=== PATIENT | female | born 1995 | race Caucasian/White ===

== ENCOUNTER 2024-01-17 22:17 | Outpatient (CLI) | payer SELFPAY ==
[~2024-01-17] VITALS: Ht 165.1 cm; Wt 68.6 kg
[2024-01-17 23:00] VITALS: BP 111/60; PULSE 81; TEMP 98
[2024-01-17] MEDS ORDERED: LR 1,000 ML IV PRN (23:00)
[2024-01-17 23:15] VITALS: BP 11/70; PULSE 77
[2024-01-17 23:30] VITALS: BP 120/71; PULSE 71
[2024-01-17 23:45] VITALS: BP 108/67; PULSE 71
[2024-01-17] MEDS ORDERED: diphenhydrAMINE 50 MG CAP PO ONE (23:45)
[2024-01-17] MEDS ORDERED: Acetaminophen 500 MG TAB PO ONE (23:45)
[2024-01-17] MEDS ORDERED: PRENATAL TABLET PO (23:54)
[2024-01-18] VITALS: BP 111/66; PULSE 66
[2024-01-19] MEDS ORDERED: MOTRIN 800800 MG/TAB PO (07:23)
== END 2024-01-18 00:22 | disposition home or self-care (01) ==
LOC: LDRO 22:17
DX: O26.893 Other specified pregnancy related conditions, third trimester (principal); E75.5 Other lipid storage disorders; Z3A.39 39 weeks gestation of pregnancy

== ENCOUNTER 2024-01-18 04:33 | Inpatient (IN) | payer SELFPAY ==
[2024-01-18] VITALS (72 sets, daily range): BP systolic 84–132; BP diastolic 49–84; PULSE 61–104; TEMP 97.6–99.5
[~2024-01-18] VITALS: Ht 152.4 cm; Wt 68.6 kg
[~2024-01-18 04:33] MED LIST: PRENATAL TABLET PO
--- NOTE | 2024-01-18 04:45 | NUR ---
G1 at 40 weeks arrives to unit with complaint of contractions every 5 minutes. Pt is ethiopian speaking. Video bridge gang worker used, ID number [id number] Criselda Pettit. Pt denies loss of fluid or red vaginal bleeding. Reports movement like normal. Pt denies any problems this . Clean gown on. Oriented to room, call light within reach, bed in low and locked position. US and toco explained and applied. Admission assessment started. Vitals obtained. SVE 3/100/bulging bag of water. Pt appears to be uncomfortable.
--- NOTE | 2024-01-18 05:10 | NUR ---
18G IV placed to left forearm. Admission labs obtained off IV start. Lactated Ringers infusion running to gravity.
[2024-01-18] MEDS ORDERED: diphenhydrAMINE 25 MG CAP PO PRN (05:15)
[2024-01-18] MEDS ORDERED: diphenhydrAMINE 50 MG/ML 1 ML VIAL IV PRN (05:15)
[2024-01-18] MEDS ORDERED: ePHEDrine 50 MG/10 ML VIAL IV PRN (05:15)
[2024-01-18] MEDS ORDERED: Naloxone 0.4 MG/ML VIAL IV PRN ×2 (05:15→22:15)
[2024-01-18] MEDS ORDERED: Ondansetron 4 MG/2 ML VIAL IV PRN (05:15)
[2024-01-18] MEDS ORDERED: LR 1,000 ML IV SCH (05:15)
[2024-01-18] MEDS ORDERED: ROPivacaine PF 0.2% 200 ML IV ONE (05:18)
--- NOTE | 2024-01-18 05:33 | NUR ---
0520 - Raina Caldwell CRNA on unit and notify that patient is ready for epidural. 0527 - Video Neon Technician used, ID number [id number] - Myesha. Viri at bedside. Pt positioned to sitting on edge of bed. Epidural procedure, risks, and benefits explained to patient, verbalized understanding. 0533 - Single shot by LONA Meredith. Pt denies any adverse reactions. 0538 - Pt positioned to wedge left with pillow support for comfort. Safety precautions reviewed, verbalized understanding. Call light within reach, bed in low and locked position. See anesthesia record.
--- NOTE | 2024-01-18 05:50 | NUR ---
BP 84/49, this RN remains at bedside with video recessing machine operator online. Pt denies feeling light headed, dizzy, or nauseous. BP cuff readjusted.
[2024-01-18 06:04] LABS: BASO # 0.1 K/mm3 (0.0-0.2); BASO % 0.4 % (0.0-2.0); EOS # 0.1 K/mm3 (0.0-0.7); EOS % 0.4 % (0.0-4.0); GRAN # 14.3 K/mm3 (1.4-6.5); GRAN % 77.9 % (42.2-75.2); HEMATOCRIT 42.5 % (37.0-47.0); HEMOGLOBIN 14.7 g/dl (12.5-16.0); LYMPH # 2.3 K/mm3 (1.2-3.4); LYMPH % 12.3 % (20.0-51.0); MEAN CELL VOLUME 90 fl (80.0-100.0); MEAN CORPUSCULAR HEMOGLOBIN 31 pg (27-31); MEAN CORPUSCULAR HGB CONC 35 g/dl (33.0-37.0); MEAN PLATELET VOLUME 10.7 fl (7.4-10.4); MONO # 1.4 K/mm3 (0.1-0.6); MONO % 7.6 % (1.7-9.3); PLATELET COUNT 338 K/mm3 (130-400); RED BLOOD COUNT 4.71 M/mm3 (4.10-5.30); REDCELL DISTRIBUTION WIDTH-CV 13.2 % (11.5-14.5)
--- NOTE | 2024-01-18 06:25 | NUR ---
0625[facility] report from Bee Melgar RN. Pt visibly uncomfortable with ctx. Automatic Lathe Setter "Mehrdad" #[id number] used for education/communication. Pt instructed on pt controlled epidural bolus button. Pt pushes button. BP noted to be 89/54. LR bolus. Ephedrine given. See mar. 0635Pt agreeable to SVE. SVE 4/100/-3. Consent forms explained and signed. RN reviews plan of care with pt and spouse who verbalize understanding. 0712Dr. Kellogg updated on pt. See physician notification. 0720Pt positioned supine for catheter placement. FHR decel to 65bmp and lasting 3min. LR bolus initiated. 0725Catheter placed. Pt left lateral with peanut ball in place. Pt instruced on how to use call light or contact nurse with any questions or needs. Questions invited. Pt denies questions or needs at this time. States comfortable with FLEX.
--- NOTE | 2024-01-18 09:55 | NUR ---
0955Dr. Kellogg on unit and updated on pt. See physician notification. 1000RN reviews plan of care and pitocin with pt who is agreeable to pitocin augmentation. Pitocin started at 2mu per orders. Roller Shop Supervisor "Lilian" #[id number] untilized. 1010Dr. Kellogg at bedside and reviews plan of care with pt and spouse who verbalize understanding. "Lilian" #[id number] utilized for all interpretation. Bedside US by Dr. Kellogg; cephalic presentation. AROM by Dr. Sanz for moderate amount of meconium stained fluid. SVE 4/100/-2. Daysi care provided, pads changed, and pt repositioned. Questions invited and answered. Pt denies any further needs at this time. Call light within reach.
[2024-01-18] MEDS ORDERED: LR & Oxytocin 500 ML IV SCH (10:15)
--- NOTE | 2024-01-18 10:50 | NUR ---
1050Patient grimacing with ctx and gestures to pt controlled epidural bolus button. "Dewey" #[id number] utilized for interpretation. Pt reports increased sharp pain. States there is no pressure at this time. Epidural bolus button pushed by pt. Reviewed pressure vs sharp pain. Instructed to call RN if she feels she needs to push epidural button again. Reviewed pushing with ctx and how pressure can help with pushing efforts, but also wanting to maintain pt comfort with FLEX. Pt verbalizes understanding. Call light within reach.
--- NOTE | 2024-01-18 12:00 | NUR ---
1200 Patient calls RN to room and reports pain 9/10. Pt pushes pt controlled epidural bolus button. SVE 6/100/0. Daysi care provided and pt repositioned. Call light within reach.
--- NOTE | 2024-01-18 13:15 | NUR ---
1315Pt calls RN to room requesting to push pt controlled epidural button. "Perfecto" #[id number] utilized. Reviewed pain vs pressure during labor. Pt reports constant pain. SVE 8/100/+1. Pt to right side and pushes pt controlled epidural button. Pt spouse instructed on counter pressure to relieve pain. Pt states this helps. This RN reinforces slow deep breathing throughout labor. Pt verbalizes understanding. Call light within reach.
--- NOTE | 2024-01-18 16:10 | NUR ---
1610SVE C/+2. Daysi care provided, patient to side. 1615Dr. Kellogg updated on pt. See physician notification. 1620Interpreter "Cristy" #[id number] used for translation. Catheter removed, daysi care provided, and patient instructed on pushing with ctx. Verbalizes understanding. Begins pushing with ctx with RN at bedside. 1650DrJorge Kellogg at bedside to observe pushing efforts. Strong maternal effort. Slow progress. 1730Elevated FHR noted. See flowsheet. Temp 99.5. Dr. Kellogg at bedside and observes FHR strips. Notified of elevated temp. Pt continues to push with ctx with RN at bedside. Strong maternal effort. Slow progess. 1745L. Nicole PAYROLL OFFICER at bedside to evaluate pt and adj epidural pump settings. See anesthesia record. 1815Pt visibly more comfortable with ctx. Continues to push with RN at bedside. Strong maternal effort. Slow progess.
--- NOTE | 2024-01-18 18:25 | NUR ---
Bedside report from SUZETTE Moore. Pt in stirrups and pushing with contractions. Video compliance auditor being used with Leticia Muniz ID Number [id number]. Pitocin infusing at 4 mu/min.
--- NOTE | 2024-01-18 18:46 | NUR ---
Dr. Kellogg at bedside to assess pushing progress. No change since his previous exam. MD reviewed plan of care and options with patient, continue pushing vs vacuum extraction vs c section. Pt wishes to proceeed with vacuum. Pt educated on vacuum use and risks by Dr. Kellogg, verbalized understanding. Charge nurse, nursery nurse and anesthesia notified.
--- NOTE | 2024-01-18 19:15 | NUR ---
1899 - This RN remains at bedside pushing with patient. 1907 - LONA Taylor on unit and Dr. Kellogg gowned and gloved at perineum. Straight catheter by Dr. Kellogg with 200 mL urine out. Pt educated to continue pushing like she has been. Nursery nurse Latrell at bedside. 1910 - Vacuum applied successfully by Dr. Kellogg. 1911 - Vacuum pumped to green. Gentle traction applied while patient pushes. Pressure released at end of contraction. 1913 - Vacuum pumped to green. Gentle traction applied while patient pushes. 1914 - Delivery of head. Vacuum pressure released and removed. Nuchal cord x 1, reduced, then delivery of body. placed to mothers abdomen. Care of infant assumed to SUZETTE Sams. Cord clamped x [address] Kell[address] and cut by FOB. Cord blood and cord gasses obtained. Pitocin off. 1921 - Spontaneous delivery of intact placenta. Pitocin restarted at 333 mu/min. Bleeding minimal and fundus firm. 3rd degree laceration repaired by Dr. Kellogg . 1929 - Pericare provided. New chux beneath patient. Icepack to perineum. QBL [address] Kell[address]. Pt repositioned in bed for comfort. recovery started. Video cloth drier used for duration of delivery and repair. Leticia Muniz ID number [id number] See physician delivery note.
[2024-01-18] MEDS ORDERED: Loratadine 10 MG TAB PO PRN (19:45)
[2024-01-18] MEDS ORDERED: Magnes Hydrox (MOM) 80 MG/ML 30 ML CUP PO SCH (21:00)
[2024-01-18] MEDS ORDERED: traZODone 50 MG TAB PO PRN (21:00)
[2024-01-18] MEDS ORDERED: oxyCODONE 5 MG TAB PO PRN (22:15)
[2024-01-18] MEDS ORDERED: Mag/Al Hydrox/Simeth Susp 30 ML CUP PO PRN (22:15)
[2024-01-18] MEDS ORDERED: Phenylephrine/Mineral Oil/Petrolatum 57 GM TUBE RC PRN (22:15)
[2024-01-18] MEDS ORDERED: Acetaminophen 500 MG TAB PO PRN (22:15)
[2024-01-18] MEDS ORDERED: Measles/Mumps/Rubella Virus Vaccine Live w Diluent 0.5 ML VIAL SQ SCH (22:15)
[2024-01-18] MEDS ORDERED: Ibuprofen 800 MG TAB PO SCH (22:15)
[2024-01-18] MEDS ORDERED: Witch Hazel 50% Pads Bulk TUB TP PRN (22:15)
--- NOTE | 2024-01-18 23:00 | NUR ---
Pt able to lift and hold left leg off of bed but right leg is still very numb. Uterus is displaced up and to the right. Pt willing to use Sumaya Steady to transfer to bathroom and empty her bladder. Once in bathroom patient states that she feels dizzy and like she might pass out. Pt very pale at this time. Additional staff called to room. Sumaya Steady used to transfer patient back to bed. BP 98/59. HR 57. Cold wash cloth to patients head. Pt starting to feel better. Encouraged patient to rest and we will try to ambulate again in 1-2 hours. Straight catheter at this time. 1200 mL yellow urine out.
[2024-01-19 01:30] VITALS: BP 96/54; PULSE 81
--- NOTE | 2024-01-19 01:45 | NUR ---
Pt has rested comfortably in bed. Able to lift and hold each leg off of bed for 5 seconds and states she can walk. Pt able to ambulate around room without difficulty. Pt transferred to room 208 in stable condition with belongings. Pt to bathroom and able to void independently. Pericare education provided. Reviewed plan of care, pt verbalized understanding. Video asset protection assistant used.
[2024-01-19 05:30] VITALS: BP 93/50; PULSE 87; TEMP 98
[2024-01-19 05:53] LABS: HEMATOCRIT 32.3 % (37.0-47.0)
[2024-01-19 05:54] LABS: HEMOGLOBIN 11.2 g/dl (12.5-16.0)
[2024-01-19 07:00] VITALS: BP 94/58; PULSE 76; TEMP 98.2
[2024-01-19] MEDS ORDERED: MOTRIN 800800 MG/TAB PO (07:23)
[2024-01-19] MEDS ORDERED: Sennosides/Docusate 8.6-50 MG TAB PO SCH (08:00)
[2024-01-19] MEDS ORDERED: Prenatal Vitamins/Iron/FA TAB PO SCH (09:00)
--- NOTE | 2024-01-19 09:53 | NUR ---
Initial visit attempt; Physician present, Vice President Regulatory left card offering congratulations and God's blessings for the of their son and information regarding the availability of Spiritual Care at [facility].
[2024-01-19 18:00] VITALS: BP 106/66; PULSE 89; TEMP 98.7
[2024-01-19 19:30] VITALS: BP 100/53; PULSE 91; TEMP 98.1
[2024-01-20 07:20] VITALS: BP 96/61; PULSE 74; TEMP 98
--- NOTE | 2024-01-20 11:15 | NUR ---
DISCHARGE EDUCATION COMPLETED VIA TRANSLATER, DISCUSSED NEED TO CALL AND MAKE FOLLOW UP APPOINTMENT ONE WAS NOT SCHEDUELED. HEALTH HISTORY GIVEN. QUESTIONS INVITED AND ANSWERED.
== END 2024-01-20 11:50 | disposition home or self-care (01) | DRG 768 ==
LOC: LDRO 04:33 → LDR 05:07 → OB 01-19 02:00
PROVIDERS: Obstetrics & Gynecology; ADMIT Obstetrics & Gynecology
PROC: 10D07Z6 Extraction of Products of Conception, Vacuum, Via Natural or Artificial Opening (ICD-10-PCS; principal; 2024-01-18)
PROC: 0DQR0ZZ Repair Anal Sphincter, Open Approach (ICD-10-PCS; 2024-01-18)
DX: O48.0 Post-term pregnancy (principal); Z37.0 Single live birth; O70.20 Third degree perineal laceration during delivery, unspecified; Z3A.40 40 weeks gestation of pregnancy; O76 Abnormality in fetal heart rate and rhythm complicating labor and delivery; O77.0 Labor and delivery complicated by meconium in amniotic fluid; O63.1 Prolonged second stage (of labor); O69.81X0 Labor and delivery complicated by cord around neck, without compression, not applicable or unspecified
CPT/HCPCS: J2590; J2795; J7120